=== PATIENT | male | born 1960 | race Caucasian/White ===

== ENCOUNTER 2017-08-11 05:47 | Day surgery (SDC) | payer OTHER ==
[2017-08-11] MEDS ORDERED: BUPIVACAINE 0.25% 30 ML SDV ONE (06:48)
[2017-08-11] MEDS ORDERED: ceFAZolin 2 GM/DEXTROSE 100 ML IV ONE (06:50)
[2017-08-11] MEDS ORDERED: LR 1,000 ML IV ONE (06:51)
[2017-08-11] MEDS ORDERED: BUPIVACAINE/EPI 0.5% 30 ML SDV ONE (07:02)
--- NOTE | 2017-08-11 07:14 | PDHPUP ---
History & Physical Update H&P update statement: This history and physical update is based on an assessment of the patient which was completed after admission or registration (within 24 hours), but prior to the surgery/procedure. H&P update: H&P reviewed & patient examined, no change in patient's condition since H&P completed
[2017-08-11] MEDS ORDERED: PROPOFOL 200 MG/20 ML VIAL ONE (07:20)
[2017-08-11] MEDS ORDERED: LIDOCAINE 2% 5 ML SDV ONE (07:20)
[2017-08-11] MEDS ORDERED: ROCURONIUM 50 MG/5 ML VIAL ONE (07:20)
[2017-08-11] MEDS ORDERED: fentaNYL 100 MCG/2 ML INJ ONE (07:20)
--- NOTE | 2017-08-11 07:46 | PDANEPAE ---
ANE History of Present Illness 57 year old male w/ prediabetes on metformin for a inguinal hernia repair. ANE Past Medical History - Cardiovascular History Hx Hypertension: No Hx Arrhythmias: No Hx Chest Pain: No Hx Coronary Artery / Peripheral Vascular Disease: No Hx CHF / Valvular Disease: No - Pulmonary History Hx COPD: No Hx Asthma/Reactive Airway Disease: No Hx Recent Upper Respiratory Infection: No Hx Oxygen in Use at Home: No Hx Sleep Apnea: No - Neurologic History Hx Cerebrovascular Accident: No Hx Seizures: No Hx Dementia: No - Endocrine History Hx Diabetes: Yes Endocrine History Comment: prediabetes - Renal History Hx Renal Disorders: No - Liver History Hx Hepatic Disorders: No - Neurological & Psychiatric Hx Hx Neurological and Psychiatric Disorders: No - Cancer History Hx Cancer: No - Congenital Disorder History Hx Congenital Disorders: No - GI History Hx Gastrointestinal Disorders: No - Surgical History Prior Surgeries: gynomastia. right wrist. right elbow ANE Review of Systems Review of systems is: negative Review of Systems: - Exercise capacity Exercise capacity: >=4 METS METS (RN): 6 METS ANE Patient History - Allergies Allergies/Adverse Reactions: cats Allergy (Uncoded 09/13/15 17:47) - Home Medications Home medications: home medication list seen and reviewed Home Medications: Metformin HCl PO BID 08/11/17 [Last Taken 08/10/17] - NPO status NPO Status: no food or drink >8 hours NPO Since - Liquids (Date): 08/10/17 NPO Since - Liquids (Time): 21:00 NPO Since - Solids (Date): 08/10/17 NPO Since - Solids (Time): 20:00 - Anes Hx Anes Hx: no prior problems - Smoking Hx Smoking Status: Never smoked - Alcohol Use Alcohol Use: Rarely - Family Anes Hx Family Anes Hx: neg - N/A Family Hx Anesthesia Complications: na ANE Labs/Vital Signs - Vital Signs Vital Signs: reviewed preoperatively; see RN documention for details Blood Pressure: 137/92 Heart Rate: 63 Respiratory Rate: 16 O2 Sat (%): 94 Height: 185.42 cm Weight: 86.183 kg ANE Physical Exam - Airway Neck exam: FROM Mallampati Score: Class 2 Mouth exam: normal dental/mouth exam Mouth image: 1 - small vertical line - Pulmonary Pulmonary: no respiratory distress - Cardiovascular Cardiovascular: regular rate and rhythym - ASA Status ASA Status: II ANE Anesthesia Plan Anesthesia Plan: general endotracheal anesthesia Total IV Anesthesia: No Urgent/Emergent Case: Jarad cox completed preop but documented later for safe timely pt care
[2017-08-11] MEDS ORDERED: ONDANSETRON 4 MG/2 ML VIAL IVP PRN (07:47)
[2017-08-11] MEDS ORDERED: fentaNYL 100 MCG/2 ML INJ IVP PRN (07:47)
[2017-08-11] MEDS ORDERED: oxyCODONE IR 5 MG TAB PO PRN (07:47)
[2017-08-11] MEDS ORDERED: NALOXONE HCL 0.4 MG/ML INJ IVP PRN (07:47)
[2017-08-11] MEDS ORDERED: ACETAMINOPHEN 500 MG TAB PO PRN (07:47)
[2017-08-11] MEDS ORDERED: LR 500 ML IV PRN (07:47)
[2017-08-11] MEDS ORDERED: HYDROmorphONE/DILAUDID 1 MG/ML INJ IVP PRN (07:47)
[2017-08-11] MEDS ORDERED: PHENYLEPHRINE HCL 100 MCG/ML SYR IVP PRN (07:47)
--- NOTE | 2017-08-11 09:17 | POSTOPPROG ---
Post Op Note Date of Operation: 08/11/17 Surgeon: Hubert Conley Mattress Stuffer: Yayo Anesthesiologist: Ashok Anesthesia: GET(General Endotracheal) Pre-op Diagnosis: Bilateral inguinal hernias Post-op Diagnosis: same Indication: pain Procedure: Lap BIH repair Findings: Indirect left inguinal hernia, direct right inguinal hernia Inf/Abcess present in the surg proc area at time of surgery?: No Depth: Deep Incisional (Fascial) EBL: Minimal
[2017-08-11 11:10] VITALS: BP 137/74
--- NOTE | 2017-08-11 16:06 | POSTANESTH ---
Post Anesthetic Evaluation Cardiovascular Status: Normal, Stable, Similar to Pre-Op Cond Respiratory Status: Normal, Stable, Similar to Pre-op Cond. Level of Consciousness/Mental Status: Can Participate in Eval, Alert and Oriented Pain Control: Adequate, Prn Tx Ordered Nausea/Vomiting Control: Adequate, Prn Tx Ordered Complications Possibly Related to Anesthesia: None Noted
--- NOTE | 2017-08-12 02:18 | GOP ---
[f rep st] OPERATIVE REPORT DATE OF OPERATION: 08/11/2017 SURGEON: Hubert Conley MD COMPUGRAPH OPERATOR: Barbara Zee NP ANESTHESIA: Paulino Pulido MD PREOPERATIVE DIAGNOSIS: Bilateral inguinal hernias. POSTOPERATIVE DIAGNOSIS: Bilateral inguinal hernias. PROCEDURE PERFORMED: Laparoscopic bilateral hernia repairs. FINDINGS: Patient was found to have a large indirect right inguinal hernia and a small indirect left inguinal hernia. DESCRIPTION OF PROCEDURE: Patient was taken to the operating room where he received a satisfactory g eneral endotracheal anesthesia by Dr. Pulido, placed in the supine position, prepped and draped in th e usual sterile fashion. An infraumbilical incision was made. Dissection was carried down to the re ctus sheath which was incised. A subfascial tunnel was developed in the preperitoneal space that was dissected free with a balloon dissector which was replaced with a CO2 insufflation trocar. Two othe r trocars were placed in the midline under direct vision. Osman's ligament was exposed bilaterally. The cords were mobilized bilaterally. Both cords had indirect sacs which were dissected free and r educed. It was small on the left, larger than the right. Bilateral Covidien mesh patches were placed over the inguinal floor and secured in place with the AbsorbaTack securing it to Osman ligament, to the lacunar ligament, the anterior abdominal wall and the lateral abdominal wall outside the interna l ring. On the left, a split patch was used to pass the limb around the cord structures. On the rig ht, an onlay patch was used. Hemostasis was assured. There were no complications. He was taken to recovery room in good condition. /[id number]/MODL
== END 2017-08-11 11:10 | disposition home or self-care (01) ==
LOC: FSGY 05:47
PROVIDERS: ATTEND Surgery
PROC: 0YUA4JZ Supplement Bilateral Inguinal Region with Synthetic Substitute, Percutaneous Endoscopic Approach (ICD-10-PCS; principal; 2017-08-11 07:15)
DX: K40.90 Unilateral inguinal hernia, without obstruction or gangrene, not specified as recurrent (principal); R73.03 Prediabetes
CPT/HCPCS: C1727; C1781; J0690; J2704; J3010